=== PATIENT | male | born 1965 | race African-American/Black ===

== ENCOUNTER 2017-10-01 23:02 | Emergency (ER) | payer SELFPAY ==
[2017-10-01] MEDS ORDERED: Ketorolac Tromethamine 30 MG/ML VIAL ONE (23:29)
[2017-10-01] MEDS ORDERED: Ondansetron HCl/PF 4 MG/2 ML Vial ONE (23:29)
--- NOTE | 2017-10-01 23:57 | RAD ---
AP VIEW OF THE CHEST: 10/01/17 INDICATION; Chest pain with nausea and vomiting. COMPARISON: Prior exam dated 04/16/17. IMPRESSION: No acute cardiopulmonary abnormality. The examination is not appreciably changed from the comparison . POS: [facility]
[2017-10-02 00:05] LABS: ALT (SGPT) 17 U/L (8-55); AST (SGOT) 22 U/L (5-34); Alkaline Phosphatase 75 U/L (40-150); Anion Gap 21 mmol/L (10-20); BUN (Urea Nitrogen) 19 mg/dL (8.4-25.7); Bilirubin, Total 0.3 mg/dL (0.2-1.2); Calc. Creatinine Clearance 0 mL/min (70-130); Calcium 10.1 mg/dL (7.8-10.44); Carbon Dioxide 19 mmol/L (22-29); Chloride 100 mmol/L (98-107); Estimated GFR-MDRD 59; Protein, Total 7.9 g/dL (6.0-8.3)
[2017-10-02 00:07] LABS: Troponin I 0.032 ng/mL (< 0.028)
[2017-10-02 00:22] LABS: Band 5 % (5-11); Hematocrit 46.1 % (42.0-52.0); Mean Platelet Volume 14.2 fL (7.4-10.4); Neutrophil 81 % (42-75); Red Blood Cell (RBC) Count 4.66 mill/uL (4.70-6.10); White Blood Cell (WBC) Count 5.9 thou/uL (4.8-10.8)
--- NOTE | 2017-10-04 15:23 | EKG ---
Test Reason : CHEST PAIN Blood Pressure : / mmHG Vent. Rate : 086 BPM Atrial Rate : 086 BPM P-R Int : 146 ms QRS Dur : 076 ms QT Int : 394 ms P-R-T Axes : 078 065 053 degrees QTc Int : 471 ms Normal sinus rhythm Possible Left atrial enlargement No STEMI Borderline ECG Confirmed by ABRAN FOSTER M.D. ([id number]), digital editor RANJAN CARIAS ([id number]) on 10/04/2017 3:23:23 PM Referred By: MINERVA FOSTER Confirmed By:ABRAN FOSTER M.D.
== END 2017-10-02 00:59 | disposition home or self-care (01) ==
LOC: ERS 23:02
DX: M54.5 Low back pain (principal); R11.2 Nausea with vomiting, unspecified; J45.909 Unspecified asthma, uncomplicated; G43.909 Migraine, unspecified, not intractable, without status migrainosus; F41.9 Anxiety disorder, unspecified; F31.9 Bipolar disorder, unspecified; F17.210 Nicotine dependence, cigarettes, uncomplicated; Z79.899 Other long term (current) drug therapy
CPT/HCPCS: 71010; 80053; 82553; 84484; 85025; 93005; 96374; 96375; J1885; J2405

== ENCOUNTER 2017-10-27 10:06 | Emergency (ER) | payer OTHER, SELFPAY ==
[2017-10-27 10:52] LABS: #Eosinphils 0.1 thou/uL (0.0-0.7); #Lymphocytes 1.3 thou/uL (1.20-3.40); #Monocytes 0.3 thou/uL (0.11-0.59); #Neutrophils 2.4 thou/uL (1.40-6.50); %Basophils 0.6 % (0.0-1.0); %Eosinophils 1.9 % (0.0-10.0); %Lymphocytes 32.2 % (21.0-51.0); %Monocytes 7.5 % (0.0-10.0); Hematocrit 45.6 % (42.0-52.0); Mean Platelet Volume 8.3 fL (7.4-10.4); Red Blood Cell (RBC) Count 4.59 mill/uL (4.70-6.10); White Blood Cell (WBC) Count 4.1 thou/uL (4.8-10.8)
[2017-10-27] MEDS ORDERED: Ondansetron ODT 4 MG TAB ONE (10:57)
[2017-10-27 11:18] LABS: ALT (SGPT) 21 U/L (8-55); AST (SGOT) 17 U/L (5-34); Alkaline Phosphatase 66 U/L (40-150); Anion Gap 11 mmol/L (10-20); BUN (Urea Nitrogen) 18 mg/dL (8.4-25.7); Bilirubin, Total 0.4 mg/dL (0.2-1.2); CK (CPK) 312 U/L (30-200); Calc. Creatinine Clearance 0 mL/min (70-130); Calcium 9.7 mg/dL (7.8-10.44); Carbon Dioxide 28 mmol/L (22-29); Chloride 104 mmol/L (98-107); Estimated GFR-MDRD 72; Lipase 57 U/L (8-78); Protein, Total 6.9 g/dL (6.0-8.3)
[2017-10-27 11:20] LABS: Troponin I Less than 0.010 ng/mL (< 0.028)
[2017-10-27] MEDS ORDERED: Ketorolac Tromethamine 60 MG/2 ML VIAL ONE (11:37)
--- NOTE | 2017-10-27 12:15 | RAD ---
PORTABLE CHEST: HISTORY: Dyspnea. FINDINGS: The lungs are clear. The heart and mediastinum are unremarkable. IMPRESSION: No acute findings. POS: [facility]
--- NOTE | 2017-12-02 12:47 | EKG ---
Test Reason : Blood Pressure : / mmHG Vent. Rate : 062 BPM Atrial Rate : 062 BPM P-R Int : 144 ms QRS Dur : 072 ms QT Int : 424 ms P-R-T Axes : 071 062 053 degrees QTc Int : 430 ms Sinus rhythm with marked sinus arrhythmia Nonspecific T wave abnormality Abnormal ECG Confirmed by BALTAZAR FARIAS, CAM ([id number]), photograph editor BELÉN MYERS ([id number]) on 12/02/2017 12:47:09 PM Referred By: Confirmed By:CAM LEDESMA MD
== END 2017-10-27 12:12 | disposition home or self-care (01) ==
LOC: ERS 10:06
DX: J45.901 Unspecified asthma with (acute) exacerbation (principal); M54.16 Radiculopathy, lumbar region; G43.909 Migraine, unspecified, not intractable, without status migrainosus; F31.9 Bipolar disorder, unspecified; F41.9 Anxiety disorder, unspecified; Z79.899 Other long term (current) drug therapy
CPT/HCPCS: 36415; 71010; 80053; 82550; 82553; 83690; 83880; 84484; 85025; 93005; 96372; J1885; J7620; Q0162

== ENCOUNTER 2017-12-07 15:29 | Emergency (ER) | payer SELFPAY ==
[2017-12-07] MEDS ORDERED: Mag-Al 1200 mg/1200 mg/30 ML UDCUP ONE (16:18)
[2017-12-07] MEDS ORDERED: Lidocaine Viscous Sol 2% 15 ml UD Cup ONE (16:18)
[2017-12-07] MEDS ORDERED: Metoclopramide HCl 10 MG TAB PO SCH (16:45)
--- NOTE | 2017-12-07 17:55 | RAD ---
CHEST ONE VIEW: History: Vomiting. Comparison: 10-27-17 FINDINGS: Lungs are clear. No pneumothorax or effusion. Cardiac silhouette and mediastinal contours are within normal limits. IMPRESSION: No acute intrathoracic abnormality. POS: [facility]
== END 2017-12-07 18:00 | disposition home or self-care (01) ==
LOC: ERS 15:29
DX: R11.2 Nausea with vomiting, unspecified (principal); F41.9 Anxiety disorder, unspecified; J45.909 Unspecified asthma, uncomplicated; G43.909 Migraine, unspecified, not intractable, without status migrainosus; F31.9 Bipolar disorder, unspecified; E66.9 Obesity, unspecified
CPT/HCPCS: 71045

== ENCOUNTER 2018-01-01 14:39 | Emergency (ER) | payer SELFPAY | END 2018-01-01 14:46 | disposition left against medical advice (07) | LOC: ERS 14:39 | DX: Z53.21 Procedure and treatment not carried out due to patient leaving prior to being seen by health care provider (principal) ==

== ENCOUNTER 2018-01-15 15:57 | Emergency (ER) | payer SELFPAY ==
[2018-01-15] MEDS ORDERED: Ondansetron ODT 4 MG TAB ONE (16:17)
[2018-01-15] MEDS ORDERED: Dexamethasone 4 mg/ml Vial ONE (16:38)
== END 2018-01-15 17:16 | disposition home or self-care (01) ==
LOC: ERS 15:57
DX: J45.901 Unspecified asthma with (acute) exacerbation (principal); R09.81 Nasal congestion
CPT/HCPCS: 94640; J1100; Q0162

== ENCOUNTER 2018-02-10 18:07 | Emergency (ER) | payer SELFPAY ==
[2018-02-10] MEDS ORDERED: Metoclopramide HCl 10 MG/2 ML VIAL ONE (20:04)
[2018-02-10] MEDS ORDERED: diphenhydrAMINE 50 MG/ML VIAL ONE (20:04)
[2018-02-10 20:26] LABS: #Eosinphils 0.1 thou/uL (0.0-0.7); #Lymphocytes 1.8 thou/uL (1.20-3.40); #Monocytes 0.4 thou/uL (0.11-0.59); #Neutrophils 3.4 thou/uL (1.40-6.50); %Basophils 0.6 % (0.0-1.0); %Eosinophils 1.3 % (0.0-10.0); %Lymphocytes 31.3 % (21.0-51.0); %Monocytes 7.5 % (0.0-10.0); %Neutrophils 59.3 % (42.0-75.0); Hemoglobin 11.5 g/dL (14.0-18.0); Mean Corpuscular HGB CONC 33.4 g/dL (32.0-36.0); Mean Corpuscular Hemoglobin 31.4 pg (27.0-31.0); Mean Corpuscular Volume 93.9 fl (80.0-94.0); Mean Platelet Volume 7.3 fL (7.4-10.4); Platelet Count 320 thou/uL (130-400); RBC Distribution Width 13.7 % (11.5-14.5); Red Blood Cell (RBC) Count 3.67 mill/uL (4.70-6.10); White Blood Cell (WBC) Count 5.8 thou/uL (4.8-10.8)
--- NOTE | 2018-02-10 20:32 | RAD ---
PORTABLE CHEST: 02/10/18 HISTORY: Chest pain. Lung henriquez are clear. Heart and mediastinum unremarkable. vascular markings normal. IMPRESSION: Negative portable chest. POS: [facility]
[2018-02-10 20:37] LABS: Prothrombin Time 13.6 SEC (12.0-14.7)
[2018-02-10 20:48] LABS: ALT (SGPT) 11 U/L (8-55); AST (SGOT) 12 U/L (5-34); Albumin 3.8 g/dL (3.5-5.0); Alkaline Phosphatase 64 U/L (40-150); Anion Gap 13 mmol/L (10-20); BUN (Urea Nitrogen) 19 mg/dL (8.4-25.7); Bilirubin, Total 0.3 mg/dL (0.2-1.2); Calc. Creatinine Clearance 0 mL/min (70-130); Calcium 9.2 mg/dL (7.8-10.44); Carbon Dioxide 26 mmol/L (22-29); Chloride 105 mmol/L (98-107); Estimated GFR-MDRD 73; Globulin 3.1 g/dL (2.4-3.5); Glucose 89 mg/dL (70-105); Lipase 47 U/L (8-78); Potassium 3.7 mmol/L (3.5-5.1); Protein, Total 6.9 g/dL (6.0-8.3); Sodium 140 mmol/L (136-145)
[2018-02-10] MEDS ORDERED: Dexamethasone 10 MG/ML VIAL ONE (20:51)
[2018-02-10 20:52] LABS: CKMB 0.6 ng/mL (0-6.6); Troponin I Less than 0.010 ng/mL (< 0.028)
[2018-02-10] MEDS ORDERED: Ketorolac Tromethamine 30 MG/ML VIAL ONE (21:02)
[2018-02-10 21:55] LABS: Bilirubin Negative (Negative); Blood, Urine Negative (Negative); Clarity CLEAR (Clear); Glucose, Urine (Dipstick) Negative (Negative); Leukocyte Negative (Negative); Nitrite Negative (Negative); Protein, Urine (Dipstick) Negative (Neg-Trace); Specific Gravity, Urine 1.031 (1.002-1.036)
== END 2018-02-10 23:32 | disposition home or self-care (01) ==
LOC: ERS 18:07
DX: J45.901 Unspecified asthma with (acute) exacerbation (principal); J32.9 Chronic sinusitis, unspecified; F32.9 Major depressive disorder, single episode, unspecified
CPT/HCPCS: 71045; 80053; 81003; 82553; 83690; 84484; 85025; 85610; 93005; 94640; 96374; 96375; J1100; J1200; J1885; J2765; J7620

== ENCOUNTER 2018-04-24 10:19 | Emergency (ER) | payer SELFPAY ==
[2018-04-24] MEDS ORDERED: Ketorolac Tromethamine 60 MG/2 ML VIAL ONE (11:09)
--- NOTE | 2018-04-24 12:01 | RAD ---
LEFT SHOULDER RADIOGRAPHS THREE VIEWS: Date: 04-24-18 Provided Clinical History: Left shoulder pain. FINDINGS: Acromioclavicular joint osteoarthrosis is demonstrated. There is no evidence for fracture or other ac margarita osseous abnormality. If there is persistent clinical concern, conservative management and follow up imaging are advised. IMPRESSION: As above. POS: [facility]
== END 2018-04-24 11:43 | disposition home or self-care (01) ==
LOC: ERS 10:19
DX: M19.012 Primary osteoarthritis, left shoulder (principal); M62.838 Other muscle spasm; J45.909 Unspecified asthma, uncomplicated; F41.9 Anxiety disorder, unspecified; F31.9 Bipolar disorder, unspecified
CPT/HCPCS: 93005; 96372; J1885

== ENCOUNTER 2018-06-22 13:53 | Emergency (ER) | payer SELFPAY ==
[2018-06-22 14:19] LABS: #Basophils 0.1 thou/uL (0.0-0.2); #Eosinphils 0.1 thou/uL (0.0-0.7); #Lymphocytes 1.8 thou/uL (1.20-3.40); #Monocytes 0.5 thou/uL (0.11-0.59); #Neutrophils 3.1 thou/uL (1.40-6.50); %Basophils 1.1 % (0.0-1.0); %Lymphocytes 32.2 % (21.0-51.0); %Monocytes 9.4 % (0.0-10.0); %Neutrophils 55.2 % (42.0-75.0); Hemoglobin 12.9 g/dL (14.0-18.0); Mean Corpuscular HGB CONC 33.8 g/dL (32.0-36.0); Mean Corpuscular Hemoglobin 32.1 pg (27.0-31.0); Mean Corpuscular Volume 94.9 fL (78.0-98.0); Mean Platelet Volume 8.2 fL (7.4-10.4); Platelet Count 256 thou/uL (130-400); RBC Distribution Width 13.5 % (11.5-14.5); Red Blood Cell (RBC) Count 4.01 mill/uL (4.70-6.10); White Blood Cell (WBC) Count 5.6 thou/uL (4.8-10.8)
[2018-06-22 14:40] LABS: ALT (SGPT) 14 U/L (8-55); AST (SGOT) 16 U/L (5-34); Albumin 3.9 g/dL (3.5-5.0); Alkaline Phosphatase 60 U/L (40-150); Anion Gap 12 mmol/L (10-20); BUN (Urea Nitrogen) 15 mg/dL (8.4-25.7); Bilirubin, Total 0.3 mg/dL (0.2-1.2); Calc. Creatinine Clearance 0 mL/min (70-130); Carbon Dioxide 24 mmol/L (22-29); Chloride 107 mmol/L (98-107); Estimated GFR-MDRD 64; Globulin 3.1 g/dL (2.4-3.5); Glucose 94 mg/dL (70-105); Potassium 3.9 mmol/L (3.5-5.1); Sodium 139 mmol/L (136-145)
--- NOTE | 2018-06-22 15:00 | RAD ---
AP VIEW OF THE CHEST: INDICATION: Cough. FINDINGS: Costophrenic angles are excluded. Heart size and pulmonary vasculature within normal limits. No acu te osseous abnormality is evident. No airspace consolidation is noted. IMPRESSION: No definite acute cardiopulmonary abnormality within the limitations of the exam. POS: [facility]
[2018-06-22] MEDS ORDERED: Diazepam 5 MG TAB ONE (15:54)
[2018-06-22] MEDS ORDERED: Lidocaine Viscous Sol 2% 15 ml UD Cup ONE (15:54)
[2018-06-22] MEDS ORDERED: Mag-Al 1200 mg/1200 mg/30 ML UDCUP ONE (15:54)
== END 2018-06-22 16:28 | disposition home or self-care (01) ==
LOC: ERS 13:53
DX: K21.9 Gastro-esophageal reflux disease without esophagitis (principal); F41.9 Anxiety disorder, unspecified; J45.909 Unspecified asthma, uncomplicated; F31.9 Bipolar disorder, unspecified
CPT/HCPCS: 36415; 71045; 80053; 85025; 94640; J7620

== ENCOUNTER 2018-07-13 11:56 | Emergency (ER) | payer SELFPAY ==
[2018-07-13] MEDS ORDERED: Ketorolac Tromethamine 60 MG/2 ML VIAL ONE (13:17)
== END 2018-07-13 13:42 | disposition home or self-care (01) ==
LOC: ERS 11:56
DX: G89.29 Other chronic pain (principal); M54.5 Low back pain; M19.90 Unspecified osteoarthritis, unspecified site
CPT/HCPCS: 96372; J1885

== ENCOUNTER 2018-07-27 10:51 | Emergency (ER) | payer SELFPAY | END 2018-07-27 11:38 | disposition home or self-care (01) | LOC: ERS 10:51 | DX: M54.2 Cervicalgia (principal); J45.909 Unspecified asthma, uncomplicated; F41.9 Anxiety disorder, unspecified; F31.9 Bipolar disorder, unspecified | CPT/HCPCS: 99283 ==

== ENCOUNTER 2019-09-17 11:50 | Emergency (ER) | payer SELFPAY ==
--- NOTE | 2019-09-17 12:39 | CT ---
CT Brain WO Con: 09/17/2019 12:26 PM CLINICAL HISTORY: Syncope. COMPARISON: None. FINDINGS: Hemorrhage: None. Ventricular system: Normal in size and morphology for the patient's age. Cerebral parenchyma: Normal Midline shift: None. Mass: No mass effect. Calvarium: Normal. Visualized Paranasal sinuses: Scattered mild inflammatory mucosal thickening. IMPRESSION: No acute intracranial abnormalities.
[2019-09-17 12:52] LABS: #Lymphocytes 1.4 thou/uL (1.20-3.40); #Monocytes 0.3 thou/uL (0.11-0.59); #Neutrophils 2.8 thou/uL (1.40-6.50); %Basophils 0.4 % (0.0-1.0); %Eosinophils 0.9 % (0.0-10.0); %Lymphocytes 29.7 % (21.0-51.0); %Monocytes 7.2 % (0.0-10.0); %Neutrophils 61.9 % (42.0-75.0); Hemoglobin 10.5 g/dL (14.0-18.0); Mean Corpuscular HGB CONC 32.2 g/dL (32.0-36.0); Mean Corpuscular Hemoglobin 29.4 pg (27.0-31.0); Mean Corpuscular Volume 91.3 fL (78.0-98.0); Mean Platelet Volume 8.1 fL (7.4-10.4); Platelet Count 267 thou/uL (130-400); RBC Distribution Width 14.5 % (11.5-14.5); Red Blood Cell (RBC) Count 3.56 mill/uL (4.70-6.10); White Blood Cell (WBC) Count 4.6 thou/uL (4.8-10.8)
[2019-09-17] MEDS ORDERED: Ketorolac Tromethamine 30 MG/ML VIAL ONE (12:55)
[2019-09-17] MEDS ORDERED: Ondansetron ODT 4 MG TAB ONE (12:55)
[2019-09-17 13:26] LABS: AST (SGOT) 14 U/L (5-34); Albumin 3.5 g/dL (3.5-5.0); Alkaline Phosphatase 59 U/L (40-110); Anion Gap 13 mmol/L (10-20); BUN (Urea Nitrogen) 13 mg/dL (8.4-25.7); Bilirubin, Total 0.4 mg/dL (0.2-1.2); Calc. Creatinine Clearance 0 mL/min (70-130); Calcium 9.3 mg/dL (7.8-10.44); Carbon Dioxide 22 mmol/L (22-29); Chloride 104 mmol/L (98-107); Estimated GFR-MDRD 57; Globulin 2.9 g/dL (2.4-3.5); Glucose 114 mg/dL (70-105); Potassium 3.9 mmol/L (3.5-5.1); Protein, Total 6.4 g/dL (6.0-8.3); Sodium 135 mmol/L (136-145)
[2019-09-17 13:36] LABS: ALT (SGPT) 16 U/L (8-55)
--- NOTE | 2019-09-18 14:07 | EKG ---
Test Reason : SYNCOPE Blood Pressure : / mmHG Vent. Rate : 056 BPM Atrial Rate : 056 BPM P-R Int : 156 ms QRS Dur : 076 ms QT Int : 440 ms P-R-T Axes : 070 053 024 degrees QTc Int : 424 ms Sinus bradycardia with marked sinus arrhythmia Nonspecific ST abnormality Abnormal ECG Confirmed by COLBY DE DIOS ([id number]), editor dictionary BELÉN MYERS ([id number]) on 09/18/2019 2:06:58 PM Referred By: Confirmed By:COLBY DE DIOS
== END 2019-09-17 13:42 | disposition home or self-care (01) ==
LOC: ERS 11:50
DX: R55 Syncope and collapse (principal); N28.9 Disorder of kidney and ureter, unspecified; J45.909 Unspecified asthma, uncomplicated; M19.90 Unspecified osteoarthritis, unspecified site; F41.9 Anxiety disorder, unspecified; F31.9 Bipolar disorder, unspecified
CPT/HCPCS: 36415; 36416; 70450; 80053; 84146; 84484; 85025; 93005; 96372; J1885; Q0162

== ENCOUNTER 2022-04-11 09:36 | Emergency (ER) | payer SELFPAY ==
[2022-04-11 10:39] LABS: #Eosinphils 0.1 thou/uL (0.0-0.7); #Lymphocytes 1.4 thou/uL (1.20-3.40); #Monocytes 0.6 thou/uL (0.11-0.59); #Neutrophils 3.7 thou/uL (1.40-6.50); %Basophils 0.4 % (0.0-1.0); %Eosinophils 1.3 % (0.0-10.0); %Lymphocytes 23.9 % (21.0-51.0); %Monocytes 9.8 % (0.0-10.0); %Neutrophils 64.6 % (42.0-75.0); Mean Corpuscular HGB CONC 31.5 g/dL (32.0-36.0); Mean Corpuscular Hemoglobin 30.8 pg (27.0-31.0); Mean Corpuscular Volume 97.9 fL (78.0-98.0); Mean Platelet Volume 8.7 fL (7.4-10.4); Platelet Count 243 thou/uL (130-400); RBC Distribution Width 15.6 % (11.5-14.5); Red Blood Cell (RBC) Count 3.58 mill/uL (4.70-6.10); White Blood Cell (WBC) Count 5.8 thou/uL (4.8-10.8)
[2022-04-11] MEDS ORDERED: methylPREDNISolone Sod Succ/PF 125 MG/2 ML VIAL ONE (10:43)
[2022-04-11] MEDS ORDERED: Magnesium 2 GM/50 ML BAG (IN WATER) ONE (10:43)
[2022-04-11 11:03] LABS: ALT (SGPT) 22 U/L (8-55); AST (SGOT) 20 U/L (5-34); Albumin 3.9 g/dL (3.5-5.0); Alkaline Phosphatase 54 U/L (40-110); Anion Gap 12 mmol/L (10-20); BUN (Urea Nitrogen) 20 mg/dL (8.4-25.7); Bilirubin, Total 0.4 mg/dL (0.2-1.2); Calc. Creatinine Clearance 0 mL/min (70-130); Calcium 9.2 mg/dL (7.8-10.44); Carbon Dioxide 26 mmol/L (22-29); Chloride 105 mmol/L (98-107); Globulin 2.9 g/dL (2.4-3.5); Glucose 91 mg/dL (70-105); Potassium 4.4 mmol/L (3.5-5.1); Protein, Total 6.8 g/dL (6.0-8.3); Sodium 139 mmol/L (136-145)
[2022-04-11] MEDS ORDERED: Azithromycin 250 MG TAB ONE (11:11)
[2022-04-11] MEDS ORDERED: Ondansetron PF 4 MG/2 ML Vial ONE (12:07)
== END 2022-04-11 12:13 | disposition home or self-care (01) ==
LOC: ERS 09:36
DX: J45.901 Unspecified asthma with (acute) exacerbation (principal); F17.210 Nicotine dependence, cigarettes, uncomplicated
CPT/HCPCS: 36415; 71046; 80053; 83880; 84484; 85025; 93005; 94640; 96365; 96375; J2405; J2930; J3475

== ENCOUNTER 2022-04-28 06:45 | Emergency (ER) | payer SELFPAY ==
[2022-04-28] MEDS ORDERED: Ondansetron PF 4 MG/2 ML Vial ONE (07:57)
[2022-04-28] MEDS ORDERED: Ketorolac Tromethamine 30 MG/ML VIAL ONE (07:57)
[2022-04-28] MEDS ORDERED: Ondansetron ODT 4 MG TAB ONE (07:58)
== END 2022-04-28 08:27 | disposition home or self-care (01) ==
LOC: ERS 06:45
DX: G89.29 Other chronic pain (principal); M54.50 Low back pain, unspecified; J45.909 Unspecified asthma, uncomplicated; F17.210 Nicotine dependence, cigarettes, uncomplicated; Z79.51 Long term (current) use of inhaled steroids
CPT/HCPCS: 93005; 96372; J1885; J2405; Q0162

== ENCOUNTER 2022-05-15 17:03 | Emergency (ER) | payer SELFPAY ==
[2022-05-15] MEDS ORDERED: Ondansetron ODT 4 MG TAB ONE (18:47)
[2022-05-15] MEDS ORDERED: Ketorolac Tromethamine 30 MG/ML VIAL ONE (18:47)
== END 2022-05-15 19:04 | disposition home or self-care (01) ==
LOC: ERS 17:03
DX: M54.50 Low back pain, unspecified (principal); G89.29 Other chronic pain
CPT/HCPCS: 96372; 99283; J1885; Q0162

== ENCOUNTER 2023-07-28 08:44 | Emergency (ER) | payer OTHER ==
[2023-07-28] MEDS ORDERED: HYDROcodone/Acetaminophen 5/325 mg Tablet ONE (09:12)
[2023-07-28] MEDS ORDERED: Cyclobenzaprine 10 MG TAB ONE (09:13)
== END 2023-07-28 10:27 | disposition home or self-care (01) ==
LOC: ERS 08:44
DX: M62.830 Muscle spasm of back (principal); I10 Essential (primary) hypertension; F17.210 Nicotine dependence, cigarettes, uncomplicated
CPT/HCPCS: 72100

== ENCOUNTER 2023-07-30 13:53 | Emergency (ER) | payer OTHER ==
[2023-07-30] MEDS ORDERED: Ketorolac Tromethamine 30 MG/ML VIAL ONE (16:15)
[2023-07-30] MEDS ORDERED: Acetaminophen 325 MG TAB ONE (16:15)
[2023-07-30] MEDS ORDERED: Gabapentin 300 MG CAP PO SCH (16:30)
== END 2023-07-30 17:07 | disposition home or self-care (01) ==
LOC: ERS 13:53
DX: M54.50 Low back pain, unspecified (principal); I10 Essential (primary) hypertension; F17.210 Nicotine dependence, cigarettes, uncomplicated
CPT/HCPCS: 96372; 99283; J1885

== ENCOUNTER 2024-01-16 00:47 | Emergency (ER) | payer OTHER ==
[2024-01-16] MEDS ORDERED: Ipratropium/Albuterol 3 ML NEB ONE ×2 (01:07→02:42)
[2024-01-16] MEDS ORDERED: Dexamethasone 10 MG/ML VIAL ONE (01:31)
[2024-01-16] MEDS ORDERED: Magnesium 2 GM/50 ML BAG (IN WATER) ONE (01:34)
[2024-01-16] MEDS ORDERED: Ondansetron PF 4 MG/2 ML Vial ONE (02:38)
[2024-01-16 03:02] LABS: SARS-CoV-2 NAA Rapid Test Not Detected (NotDetected)
== END 2024-01-16 04:40 | disposition home or self-care (01) ==
LOC: ERS 00:47
DX: J45.901 Unspecified asthma with (acute) exacerbation (principal); J10.1 Influenza due to other identified influenza virus with other respiratory manifestations; I10 Essential (primary) hypertension; F17.210 Nicotine dependence, cigarettes, uncomplicated
CPT/HCPCS: 71045; 93005; 94640; 94760; 96365; 96375; J1100; J2405; J3475; J7620

== ENCOUNTER 2024-01-23 09:15 | Emergency (ER) | payer OTHER ==
[2024-01-23] MEDS ORDERED: Ipratropium/Albuterol 3 ML NEB ONE (09:45)
[2024-01-23 09:55] LABS: #Eosinphils 0.2 thou/uL (0.0-0.7); #Monocytes 0.6 thou/uL (0.11-0.59); #Neutrophils 3.9 thou/uL (1.40-6.50); %Basophils 0.1 % (0.0-1.0); %Eosinophils 3.1 % (0.0-10.0); %Lymphocytes 28.4 % (21.0-51.0); %Monocytes 9.1 % (0.0-10.0); %Neutrophils 58.1 % (42.0-75.0); Hemoglobin 8.5 g/dL (14.0-18.0); Mean Corpuscular HGB CONC 30.4 g/dL (32.0-36.0); Mean Corpuscular Hemoglobin 24.4 pg (27.0-31.0); Mean Corpuscular Volume 80.2 fl (78.0-98.0); Platelet Count 295 10x3/uL (130-400); RBC Distribution Width 16.3 % (11.5-14.5); Red Blood Cell (RBC) Count 3.49 mill/uL (4.70-6.10); White Blood Cell (WBC) Count 6.7 10x3/uL (4.8-10.8)
[2024-01-23] MEDS ORDERED: Dexamethasone 10 MG/ML VIAL ONE (09:55)
[2024-01-23 10:18] LABS: Troponin I 0.015 ng/mL (< 0.028)
[2024-01-23 10:21] LABS: ALT (SGPT) 16 U/L (8-55); AST (SGOT) 22 U/L (5-34); Albumin 3.8 g/dL (3.5-5.0); Alkaline Phosphatase 49 U/L (40-110); Anion Gap 13 mmol/L (10-20); BUN (Urea Nitrogen) 18 mg/dL (8.4-25.7); Bilirubin, Total 0.4 mg/dL (0.2-1.2); Calc. Creatinine Clearance 0 mL/min (70-130); Calcium 8.9 mg/dL (7.8-10.44); Carbon Dioxide 30 mmol/L (22-29); Chloride 97 mmol/L (98-107); Estimated GFR 63; Globulin 3.4 g/dL (2.4-3.5); Glucose 120 mg/dL (70-105); Potassium 3.5 mmol/L (3.5-5.1); Protein, Total 7.2 g/dL (6.0-8.3); Sodium 136 mmol/L (136-145)
[2024-01-23 10:31] LABS: Influenza A by NAA Not Detected (NotDetected); SARS-CoV-2 NAA Rapid Test Not Detected (NotDetected)
[2024-01-23] MEDS ORDERED: Ketorolac Tromethamine 30 MG (1 mL) VIAL ONE (10:40)
== END 2024-01-23 11:10 | disposition home or self-care (01) ==
LOC: ERS 09:15
DX: S70.01XA Contusion of right hip, initial encounter (principal); J45.909 Unspecified asthma, uncomplicated; G89.29 Other chronic pain; M54.9 Dorsalgia, unspecified; I10 Essential (primary) hypertension; F17.210 Nicotine dependence, cigarettes, uncomplicated; W01.198A Fall on same level from slipping, tripping and stumbling with subsequent striking against other object, initial encounter; Z79.899 Other long term (current) drug therapy
CPT/HCPCS: 71045; 80053; 83880; 84484; 85025; 93005; 94640; J1100; J1885; J7620

== ENCOUNTER 2024-05-17 16:27 | Observation (INO) | payer OTHER ==
[2024-05-17] MEDS ORDERED: Ketorolac Tromethamine 30 MG (1 mL) VIAL ONE (17:05)
[2024-05-17 17:48] LABS: #Basophils Less than 0.03 10x3/uL (0.0-0.2); %Basophils 0.3 % (0.0-1.0); %Eosinophils 0.5 % (0.0-10.0); %Monocytes 9.9 % (0.0-10.0); Hematocrit 32.1 % (42.0-52.0); Mean Corpuscular HGB CONC 31.2 g/dL (32.0-36.0); Mean Corpuscular Hemoglobin 24.2 pg (27.0-31.0); Mean Corpuscular Volume 77.7 fL (78.0-98.0); Mean Platelet Volume 9.7 fL (7.4-10.4); Platelet Count 401 10x3/uL (130-400); Red Blood Cell (RBC) Count 4.13 mill/uL (4.70-6.10)
[2024-05-17 18:10] LABS: Troponin I Less than 0.010 ng/mL (< 0.028)
[2024-05-17] MEDS ORDERED: Acetaminophen 500 MG TAB ONE (18:42)
[2024-05-17 19:03] LABS: ALT (SGPT) 19 U/L (8-55); AST (SGOT) 19 U/L (5-34); Albumin 3.7 g/dL (3.5-5.0); Alkaline Phosphatase 68 U/L (40-110); Anion Gap 17 mmol/L (10-20); BUN (Urea Nitrogen) 20 mg/dL (8.4-25.7); Bilirubin, Total 0.7 mg/dL (0.2-1.2); Calc. Creatinine Clearance 0 mL/min (70-130); Carbon Dioxide 27 mmol/L (22-29); Chloride 95 mmol/L (98-107); Estimated GFR 51; Globulin 4.4 g/dL (2.4-3.5); Glucose 122 mg/dL (70-105); Lipase 46 U/L (8-78); Magnesium 2.4 mg/dL (1.6-2.6); Potassium 2.4 mmol/L (3.5-5.1); Protein, Total 8.1 g/dL (6.0-8.3); Sodium 137 mmol/L (136-145)
[2024-05-17] MEDS ORDERED: Morphine 4 MG/ML VIAL ONE (19:33)
[2024-05-17] MEDS ORDERED: Potassium Chloride 20 MEQ TAB ONE (19:33)
[2024-05-17] MEDS ORDERED: Potassium Chloride 20 MEQ (100 mL) BAG ONE (19:34)
[2024-05-17] MEDS ORDERED: Acetaminophen 325 MG TAB PO PRN ×2 (20:15→20:26)
[2024-05-17] MEDS ORDERED: Loratadine 10 MG TAB PO PRN (20:24)
[2024-05-17] MEDS ORDERED: traMADol HCl 50 MG TAB PO PRN (20:24)
[2024-05-17] MEDS ORDERED: Ondansetron ODT 4 MG TAB PO PRN (20:26)
[2024-05-17] MEDS ORDERED: Acetaminophen 650 MG Suppository PR PRN (20:26)
[2024-05-17] MEDS ORDERED: Electrolyte Replacement Protocol 1 EACH FS SCH (20:27)
[2024-05-17] MEDS: Gabapentin 100 MG CAP PO SCH (22:02)
[2024-05-17] MEDS: Ondansetron PF 4 MG/2 ML Vial IVP PRN (22:02)
[2024-05-17] MEDS: traZODone HCl 50 MG TAB PO PRN (22:02)
[2024-05-17] MEDS: traMADol HCl 50 MG TAB PO SCH (22:03)
[2024-05-17] MEDS: Lactated Ringer's 1,000 ML IV SCH (22:03)
[2024-05-17] MEDS: Pantoprazole DR 40 MG TAB PO SCH (22:03)
[2024-05-17 22:11] VITALS: BMI 29.5
[2024-05-17] MEDS: Potassium Chloride 20 MEQ in Premix 1 BAG IVPB SCH (23:12)
[2024-05-18 04:50] LABS: #Basophils 0.03 10x3/uL (0.0-0.2); %Basophils 0.6 % (0.0-1.0); %Eosinophils 1.6 % (0.0-10.0); %Lymphocytes 32.6 % (21.0-51.0); %Monocytes 13.6 % (0.0-10.0); %Neutrophils 51.4 % (42.0-75.0); Hematocrit 29.2 % (42.0-52.0); Hemoglobin 8.7 g/dL (14.0-18.0); Mean Corpuscular HGB CONC 29.8 g/dL (32.0-36.0); Mean Corpuscular Hemoglobin 23.3 pg (27.0-31.0); Mean Corpuscular Volume 78.1 fL (78.0-98.0); Mean Platelet Volume 9.4 fL (7.4-10.4); Platelet Count 331 10x3/uL (130-400); RBC Distribution Width 18.1 % (11.5-14.5); Red Blood Cell (RBC) Count 3.74 mill/uL (4.70-6.10)
[2024-05-18 05:29] LABS: Anion Gap 13 mmol/L (10-20); BUN (Urea Nitrogen) 20 mg/dL (8.4-25.7); Calc. Creatinine Clearance 78 mL/min (70-130); Calcium 8.8 mg/dL (7.8-10.44); Carbon Dioxide 27 mmol/L (22-29); Chloride 98 mmol/L (98-107); Estimated GFR 54; Glucose 102 mg/dL (70-105); Sodium 135 mmol/L (136-145)
[2024-05-18] MEDS: Aripiprazole 15 MG TAB PO SCH (09:06)
[2024-05-18] MEDS: Potassium Chloride 20 MEQ TAB PO SCH (09:08)
[2024-05-18] MEDS: Citalopram 20 MG TAB PO SCH (09:08)
[2024-05-18 12:38] VITALS: BP 112/72; TEMP 97.3
[2024-05-18 14:02] VITALS: BMI 29.5
[2024-05-18] MEDS ORDERED: Gabapentin 100 MG CAP PO SCH (15:00)
[2024-05-19] MEDS ORDERED: Amlodipine 10 MG TAB PO SCH (09:00)
== END 2024-05-18 14:10 | disposition home or self-care (01) ==
LOC: ERS 16:27 → 2NO 20:03
PROVIDERS: ADMIT Student in an Organized Health Care Education/Training Program; ATTEND Student in an Organized Health Care Education/Training Program
DX: E87.6 Hypokalemia (principal); I13.0 Hypertensive heart and chronic kidney disease with heart failure and stage 1 through stage 4 chronic kidney disease, or unspecified chronic kidney disease; N18.9 Chronic kidney disease, unspecified; I50.30 Unspecified diastolic (congestive) heart failure; D63.1 Anemia in chronic kidney disease; M54.9 Dorsalgia, unspecified; M54.2 Cervicalgia; M79.603 Pain in arm, unspecified; G89.29 Other chronic pain; R07.9 Chest pain, unspecified; J45.909 Unspecified asthma, uncomplicated; F31.9 Bipolar disorder, unspecified; N17.9 Acute kidney failure, unspecified; Z90.89 Acquired absence of other organs; Z88.0 Allergy status to penicillin; Z79.899 Other long term (current) drug therapy; Z79.51 Long term (current) use of inhaled steroids
CPT/HCPCS: 36415; 36416; 71045; 72148; 80048; 80053; 83690; 83735; 83880; 84484; 85025; 85379; 93005; 96365; 96375; 96376; G0378; J1790; J1885; J2270; J2405; J3480; J7120

== ENCOUNTER 2024-09-07 11:46 | Emergency (ER) | payer OTHER ==
[~2024-09-07 11:46] MED LIST: Iopamidol-370 76% 500 ML MDV (1 ML CHARGE) ONE
[2024-09-07] MEDS ORDERED: Ondansetron ODT 4 MG TAB ONE (12:25)
[2024-09-07 12:49] LABS: Hematocrit 31.1 % (42.0-52.0); Hemoglobin 9.1 g/dL (14.0-18.0); Mean Corpuscular HGB CONC 29.3 g/dL (32.0-36.0); Mean Corpuscular Hemoglobin 23.3 pg (27.0-31.0); Mean Corpuscular Volume 79.7 fL (78.0-98.0); Mean Platelet Volume 10.2 fL (7.4-10.4); Platelet Count 373 10x3/uL (130-400); RBC Distribution Width 25.2 % (11.5-14.5)
[2024-09-07 13:11] LABS: Anisocytosis SLIGHT = 6-15 cells HPF (0-5); Elliptocytes SLIGHT = 2-5 cells HPF (0-1); Hypochromia SLIGHT = 6-15 cells HPF (0-5); Platelet Adequacy Comment Platelets Normal; Polychromasia SLIGHT = 2-3 cells HPF (0-2)
[2024-09-07 13:13] LABS: ALT (SGPT) 20 U/L (8-55); AST (SGOT) 19 U/L (5-34); Albumin 3.4 g/dL (3.5-5.0); Alkaline Phosphatase 67 U/L (40-110); Anion Gap 12 mmol/L (10-20); BUN (Urea Nitrogen) 19 mg/dL (8.4-25.7); Bilirubin, Total 0.7 mg/dL (0.2-1.2); Calc. Creatinine Clearance 0 mL/min (70-130); Calcium 9.1 mg/dL (7.8-10.44); Carbon Dioxide 23 mmol/L (22-29); Chloride 109 mmol/L (98-107); Estimated GFR 75; Globulin 3.5 g/dL (2.4-3.5); Glucose 97 mg/dL (70-105); Potassium 3.8 mmol/L (3.5-5.1); Protein, Total 6.9 g/dL (6.0-8.3); Sodium 140 mmol/L (136-145)
[2024-09-07 13:15] LABS: Troponin I Less than 0.010 ng/mL (< 0.028)
[2024-09-07] MEDS ORDERED: Ipratropium/Albuterol 3 ML NEB ONE ×2 (13:25→15:30)
[2024-09-07] MEDS ORDERED: predniSONE 20 MG TAB ONE ×2 (13:25→13:36)
[2024-09-07] MEDS ORDERED: Ketorolac Tromethamine 30 MG (1 mL) VIAL ONE (15:30)
== END 2024-09-07 16:49 | disposition home or self-care (01) ==
LOC: ERS 11:46
DX: J18.9 Pneumonia, unspecified organism (principal); R07.89 Other chest pain; I10 Essential (primary) hypertension; J45.901 Unspecified asthma with (acute) exacerbation; Z79.51 Long term (current) use of inhaled steroids; Z87.891 Personal history of nicotine dependence
CPT/HCPCS: 36415; 71046; 71275; 80053; 83605; 84484; 85025; 87428; 93005; 94640; 96374; J1885; J7512; J7620; Q0162; Q9967

== ENCOUNTER 2024-11-11 14:36 | Inpatient (IN) | payer OTHER ==
[2024-11-11 15:46] LABS: #Basophils Less than 0.03 10x3/uL (0.0-0.2); %Basophils 0.3 % (0.0-1.0); %Eosinophils 1.6 % (0.0-10.0); %Lymphocytes 17.3 % (21.0-51.0); %Monocytes 10.1 % (0.0-10.0); %Neutrophils 70.3 % (42.0-75.0); Hematocrit 24.9 % (42.0-52.0); Hemoglobin 7.2 g/dL (14.0-18.0); Mean Corpuscular HGB CONC 28.9 g/dL (32.0-36.0); Mean Corpuscular Hemoglobin 23.8 pg (27.0-31.0); Mean Corpuscular Volume 82.5 fL (78.0-98.0); Mean Platelet Volume 10.1 fL (7.4-10.4); Platelet Count 308 10x3/uL (130-400); RBC Distribution Width 21.5 % (11.5-14.5); Red Blood Cell (RBC) Count 3.02 mill/uL (4.70-6.10)
[2024-11-11 16:00] LABS: ALT (SGPT) 43 U/L (8-55); AST (SGOT) 27 U/L (5-34); Albumin 3.5 g/dL (3.5-5.0); Alkaline Phosphatase 66 U/L (40-110); Anion Gap 13 mmol/L (10-20); BUN (Urea Nitrogen) 20 mg/dL (8.4-25.7); Bilirubin, Total 0.4 mg/dL (0.2-1.2); Calc. Creatinine Clearance 0 mL/min (70-130); Calcium 9.2 mg/dL (7.8-10.44); Carbon Dioxide 25 mmol/L (22-29); Chloride 108 mmol/L (98-107); Estimated GFR 81; Globulin 3.4 g/dL (2.4-3.5); Glucose 84 mg/dL (70-105); Potassium 3.9 mmol/L (3.5-5.1); Protein, Total 6.9 g/dL (6.0-8.3); Sodium 142 mmol/L (136-145)
[2024-11-11 16:05] LABS: Anisocytosis MODERATE=16-30 cells HPF (0-5); Hypochromia SLIGHT = 6-15 cells HPF (0-5); Macrocytosis SLIGHT = 6-15 cells HPF (0-5); Platelet Adequacy Comment Platelets Normal; Polychromasia SLIGHT = 2-3 cells HPF (0-2)
[2024-11-11 16:06] LABS: Troponin I Less than 0.010 ng/mL (< 0.028)
[2024-11-11] MEDS ORDERED: methylPREDNISolone Sod Succ/PF 125 MG/2 ML VIAL ONE (17:39)
[2024-11-11] MEDS ORDERED: Ipratropium/Albuterol 3 ML NEB ONE ×2 (17:56→19:39)
[2024-11-11] MEDS ORDERED: Albuterol 2.5 MG (0.5 mL) NEB ONE (17:56)
[2024-11-11] MEDS ORDERED: HYDROcodone/Acetaminophen 10/325 mg Tablet ONE (18:34)
[2024-11-11] MEDS ORDERED: Ondansetron ODT 4 MG TAB SL PRN (21:00)
[2024-11-11] MEDS ORDERED: Acetaminophen 325 MG TAB PO PRN (21:00)
[2024-11-11 22:05] VITALS: BMI 41.4
[2024-11-11] MEDS ORDERED: Albuterol 200 PUFF INH INH PRN (22:23)
[2024-11-11] MEDS ORDERED: HYDROcodone/Acetaminophen 10/325 mg Tablet PO PRN (22:24)
[2024-11-11] MEDS: Ondansetron PF 4 MG/2 ML Vial IVP PRN (22:41)
[2024-11-11] MEDS: Ketorolac Tromethamine 30 MG (1 mL) VIAL IVP PRN (22:41)
[2024-11-12] MEDS: HYDROcodone/Acetaminophen 10/325 mg Tablet PO PRN (00:31)
[2024-11-12] MEDS: hydrOXYzine 25 MG TAB PO SCH (00:32)
[2024-11-12] MEDS: Ipratropium/Albuterol 3 ML NEB NEB SCH (00:44)
[2024-11-12 01:35] LABS: Amphetamine Not Detected (NotDetected); Barbiturates Screen Not Detected (NotDetected); Benzodiazepine Screen Not Detected (NotDetected); Cocaine Metabolite Screen Not Detected (NotDetected); Methadone Not Detected (NotDetected); Methamphetamine Not Detected (NotDetected); Opiate Screen Detected (NotDetected); Oxycodone Screen Not Detected (NotDetected); Phencyclidine (PCP) Not Detected (NotDetected); THC/Cannabinoid Screen Not Detected (NotDetected); Tricyclic Screen Not Detected (NotDetected)
[2024-11-12 08:49] LABS: Hematocrit 23.7 % (42.0-52.0); Hemoglobin 6.9 g/dL (14.0-18.0); Mean Corpuscular HGB CONC 29.1 g/dL (32.0-36.0); Mean Corpuscular Hemoglobin 23.7 pg (27.0-31.0); Mean Corpuscular Volume 81.4 fL (78.0-98.0); Mean Platelet Volume 10.1 fL (7.4-10.4); Platelet Count 269 10x3/uL (130-400); RBC Distribution Width 22.2 % (11.5-14.5); Red Blood Cell (RBC) Count 2.91 mill/uL (4.70-6.10)
[2024-11-12 09:09] LABS: Chloride 107 mmol/L (98-107); Potassium 4.2 mmol/L (3.5-5.1); Sodium 137 mmol/L (136-145)
[2024-11-12 09:11] LABS: Anion Gap 13 mmol/L (10-20); BUN (Urea Nitrogen) 16 mg/dL (8.4-25.7); Calc. Creatinine Clearance 180 mL/min (70-130); Calcium 9.2 mg/dL (7.8-10.44); Carbon Dioxide 22 mmol/L (22-29); Estimated GFR 99; Glucose 160 mg/dL (70-105)
[2024-11-12] MEDS: predniSONE 20 MG TAB PO SCH (09:20)
[2024-11-12] MEDS: Gabapentin 300 MG CAP PO SCH (09:20)
[2024-11-12] MEDS ORDERED: Acetaminophen 325 MG TAB PO PRN (12:19)
[2024-11-12] MEDS ORDERED: Ondansetron PF 4 MG/2 ML Vial IVP PRN (12:19)
[2024-11-12] MEDS: Amlodipine 10 MG TAB PO SCH (12:34)
[2024-11-12] MEDS: Pantoprazole 40 MG VIAL IVP SCH ×2 (12:35→20:15)
[2024-11-12 13:21] LABS: Iron 10 ug/dL (65-175); Iron Binding Capacity, Total 440 mcg/dL (261-462)
[2024-11-12 18:21] LABS: Hematocrit 26.8 % (42.0-52.0); Hemoglobin 8.2 g/dL (14.0-18.0)
[2024-11-12] MEDS: Methocarbamol 500 MG TAB PO PRN (20:16)
[2024-11-12] MEDS: hydrOXYzine 25 MG TAB PO PRN (20:51)
[2024-11-12] MEDS: Sodium Ferric Gluconate 250 MG in Sodium Chloride 0.9% 250 ML 250 ML IVPB SCH (20:52)
[2024-11-13] MEDS: Amlodipine 10 MG TAB PO SCH (08:14)
[2024-11-13 08:59] LABS: Hematocrit 26.5 % (42.0-52.0); Hemoglobin 7.8 g/dL (14.0-18.0); Mean Corpuscular HGB CONC 29.4 g/dL (32.0-36.0); Mean Corpuscular Hemoglobin 24.6 pg (27.0-31.0); Mean Corpuscular Volume 83.6 fL (78.0-98.0); Mean Platelet Volume 10.2 fL (7.4-10.4); Platelet Count 258 10x3/uL (130-400); RBC Distribution Width 21.2 % (11.5-14.5); Red Blood Cell (RBC) Count 3.17 mill/uL (4.70-6.10)
[2024-11-13 09:16] LABS: Anion Gap 13 mmol/L (10-20); BUN (Urea Nitrogen) 20 mg/dL (8.4-25.7); Calc. Creatinine Clearance 167 mL/min (70-130); Calcium 8.6 mg/dL (7.8-10.44); Carbon Dioxide 23 mmol/L (22-29); Chloride 108 mmol/L (98-107); Estimated GFR 90; Glucose 90 mg/dL (70-105); Potassium 3.9 mmol/L (3.5-5.1); Sodium 140 mmol/L (136-145)
[2024-11-13] MEDS ORDERED: PROPOFOL 20 ML ONE (11:57)
[2024-11-13] MEDS: Sodium Ferric Gluconate 250 MG in Sodium Chloride 0.9% 250 ML 250 ML IVPB SCH (16:01)
[2024-11-13] MEDS: Docusate 100 MG CAP PO PRN (21:14)
[2024-11-13] MEDS: Polyethylene Glycol 3350 17 GM Packet PO PRN (21:14)
[2024-11-14 06:19] LABS: Hematocrit 26.8 % (42.0-52.0); Hemoglobin 7.8 g/dL (14.0-18.0); Mean Corpuscular HGB CONC 29.1 g/dL (32.0-36.0); Mean Corpuscular Hemoglobin 24.4 pg (27.0-31.0); Mean Corpuscular Volume 83.8 fL (78.0-98.0); Mean Platelet Volume 10.3 fL (7.4-10.4); Platelet Count 268 10x3/uL (130-400); RBC Distribution Width 21.8 % (11.5-14.5)
[2024-11-14 18:01] VITALS: BP 145/77; TEMP 97.9
== END 2024-11-14 17:59 | disposition home or self-care (01) | DRG 812 ==
LOC: ERS 14:36 → T4-B 20:45 → OBSVTOIN 11-12 08:34
PROVIDERS: ADMIT Student in an Organized Health Care Education/Training Program; ATTEND Internal Medicine
PROC: 30233N1 Transfusion of Nonautologous Red Blood Cells into Peripheral Vein, Percutaneous Approach (ICD-10-PCS; 2024-11-12)
PROC: 0DB38ZX Excision of Lower Esophagus, Via Natural or Artificial Opening Endoscopic, Diagnostic (ICD-10-PCS; principal; 2024-11-13)
DX: D50.9 Iron deficiency anemia, unspecified (principal); J45.901 Unspecified asthma with (acute) exacerbation; R45.851 Suicidal ideations; G89.29 Other chronic pain; I10 Essential (primary) hypertension; J45.909 Unspecified asthma, uncomplicated; K44.9 Diaphragmatic hernia without obstruction or gangrene; K25.9 Gastric ulcer, unspecified as acute or chronic, without hemorrhage or perforation; M54.59 Other low back pain; M48.061 Spinal stenosis, lumbar region without neurogenic claudication; K21.00 Gastro-esophageal reflux disease with esophagitis, without bleeding; K29.70 Gastritis, unspecified, without bleeding; F32.A Depression, unspecified; F41.9 Anxiety disorder, unspecified; Z88.0 Allergy status to penicillin; Z79.899 Other long term (current) drug therapy; Z79.52 Long term (current) use of systemic steroids
CPT/HCPCS: 36415; 36430; 70450; 71046; 80048; 80053; 80306; 82728; 83540; 83550; 83880; 84484; 85025; 85027; 85379; 86850; 86900; 86901; 88305; 93005; 93010; 94644; 96372; 96374; 96375; 96376; G0378; J1885; J2405; J2470; J2704; J2916; J2919; J7050; J7512; J7611; J7620; P9016

== ENCOUNTER 2025-01-07 12:50 | Emergency (ER) | payer OTHER ==
[2025-01-07 15:17] LABS: #Basophils 0.03 10x3/uL (0.0-0.2); %Basophils 0.5 % (0.0-1.0); %Eosinophils 2.4 % (0.0-10.0); %Monocytes 7.7 % (0.0-10.0); %Neutrophils 65.2 % (42.0-75.0); Hemoglobin 12.7 g/dL (14.0-18.0); Mean Corpuscular HGB CONC 31.8 g/dL (32.0-36.0); Mean Corpuscular Hemoglobin 29.9 pg (27.0-31.0); Mean Corpuscular Volume 94.1 fL (78.0-98.0); Mean Platelet Volume 10.1 fL (7.4-10.4); Platelet Count 218 10x3/uL (130-400); RBC Distribution Width 20.1 % (11.5-14.5); Red Blood Cell (RBC) Count 4.25 mill/uL (4.70-6.10)
[2025-01-07 15:31] LABS: Bacteria/HPF None Seen HPF (None Seen); Bilirubin Negative (Negative); Blood, Urine Negative (Negative); CAUTI Indications for Culture Pelvic or flank pain; Clarity Clear (Clear); Glucose, Urine (Dipstick) Normal (Negative); Ketone, Urine Negative (Negative); Leukocyte Negative Leu/uL (Negative); Nitrite Negative (Negative); Protein, Urine (Dipstick) 10 mg/dL (Neg-Trace); RBC/HPF 0-3 HPF (0-3); Specific Gravity, Urine 1.029 (1.002-1.036); Squamous Epithelial 0-3 HPF (0-3); WBC/HPF 0-3 HPF (0-3)
[2025-01-07 15:34] LABS: Urine Culture Reflex No No
[2025-01-07 15:37] LABS: ALT (SGPT) 27 U/L (Less than 45); AST (SGOT) 27 U/L (11-34); Albumin 3.9 g/dL (3.1-4.5); Alkaline Phosphatase 65 U/L (40-110); Anion Gap 17 mmol/L (10-20); BUN (Urea Nitrogen) 14 mg/dL (8.4-25.7); Bilirubin, Total 0.4 mg/dL (0.3-1.2); Calc. Creatinine Clearance 0 mL/min (70-130); Calcium 9.3 mg/dL (7.8-10.44); Carbon Dioxide 25 mmol/L (22-29); Chloride 103 mmol/L (98-107); Estimated GFR 71; Globulin 3.4 g/dL (2.4-3.5); Glucose 74 mg/dL (70-105); Lipase 20 U/L (8-78); Potassium 3.8 mmol/L (3.5-5.1); Protein, Total 7.3 g/dL (6.0-8.3); Sodium 141 mmol/L (136-145)
[2025-01-07] MEDS ORDERED: Ketorolac Tromethamine 30 MG (1 mL) VIAL ONE (16:15)
== END 2025-01-07 16:38 | disposition home or self-care (01) ==
LOC: ERS 12:50
DX: G89.4 Chronic pain syndrome (principal); I10 Essential (primary) hypertension; Z87.891 Personal history of nicotine dependence
CPT/HCPCS: 36415; 80053; 81001; 83690; 85025; 87081; 87428; 87430; 96372; 99283; J1885

== ENCOUNTER 2025-01-24 10:27 | Outpatient (CLI) | payer OTHER ==
[2025-01-24] MEDS ORDERED: Barium Sulfate 96% 176 GM BOT (xray ONLY) ONE (10:40)
[2025-01-24] MEDS ORDERED: E-Z-HD 98% W/W 340GM BOT (x-ray ONLY) ONE (10:40)
== END 2025-01-24 10:28 | disposition home or self-care (01) ==
LOC: SJX 10:27
PROVIDERS: ATTEND Surgery
DX: K21.9 Gastro-esophageal reflux disease without esophagitis (principal); K44.9 Diaphragmatic hernia without obstruction or gangrene
CPT/HCPCS: 74220

== ENCOUNTER 2025-08-01 19:55 | Emergency (ER) | payer OTHER ==
[2025-08-01] MEDS ORDERED: Droperidol 5 MG/2 ML VIAL ONE (21:15)
[2025-08-01 21:25] LABS: #Basophils Less than 0.03 10x3/uL (0.0-0.2); #Eosinophils 0.03 10x3/uL (0.0-0.7); #Monocytes 0.58 10x3/uL (0.11-0.59); #Neutrophils 5.99 10x3/uL (1.40-6.50); %Basophils 0.3 % (0.0-1.0); %Eosinophils 0.4 % (0.0-10.0); %Lymphocytes 14.9 % (21.0-51.0); %Monocytes 7.4 % (0.0-10.0); %Neutrophils 76.6 % (42.0-75.0); Hematocrit 46.2 % (42.0-52.0); Hemoglobin 14.9 g/dL (14.0-18.0); Mean Corpuscular Hemoglobin 30.0 pg (27.0-31.0); Mean Corpuscular Volume 93.1 fL (78.0-98.0); Platelet Count 268 10x3/uL (130-400); Red Blood Cell (RBC) Count 4.96 mill/uL (4.70-6.10); White Blood Cell (WBC) Count 7.81 10x3/uL (4.8-10.8)
[2025-08-01 21:52] LABS: ALT (SGPT) 22 U/L (Less than 45); AST (SGOT) 19 U/L (11-34); Albumin 4.3 g/dL (3.1-4.5); Alkaline Phosphatase 105 U/L (40-110); Anion Gap 11 mmol/L (10-20); BUN (Urea Nitrogen) 12 mg/dL (8.4-25.7); Bilirubin, Total 0.7 mg/dL (0.3-1.2); Calc. Creatinine Clearance 0 mL/min (70-130); Calcium 9.8 mg/dL (7.8-10.44); Carbon Dioxide 27 mmol/L (22-29); Chloride 104 mmol/L (98-107); Globulin 3.8 g/dL (2.4-3.5); Glucose 108 mg/dL (70-105); Lipase 19 U/L (8-78); Potassium 3.4 mmol/L (3.5-5.1); Sodium 139 mmol/L (136-145)
[2025-08-01 23:07] LABS: Bacteria/HPF None Seen HPF (None Seen); Glucose, Urine (Dipstick) 50 mg/dL (Negative); Leukocyte Negative Leu/uL (Negative); Protein, Urine (Dipstick) 20 mg/dL (Neg-Trace); RBC/HPF 0-3 HPF (0-3); Specific Gravity, Urine 1.022 (1.002-1.036)
== END 2025-08-02 00:15 | disposition home or self-care (01) ==
LOC: ERS 19:55
DX: M54.50 Low back pain, unspecified (principal); I10 Essential (primary) hypertension; J45.909 Unspecified asthma, uncomplicated; D64.9 Anemia, unspecified; F41.9 Anxiety disorder, unspecified; F31.9 Bipolar disorder, unspecified; Z87.891 Personal history of nicotine dependence; Z55.6 Problems related to health literacy; Z79.899 Other long term (current) drug therapy
CPT/HCPCS: 36415; 71045; 74176; 80053; 81001; 83690; 83880; 84484; 85025; 87426; 93005; 96374; 96375; J1790; J2270